=== PATIENT | male | born 2000 | race Caucasian/White ===

== ENCOUNTER 2023-04-24 18:56 | Emergency (ER) | payer SELFPAY ==
[~2023-04-24] VITALS: Ht 172.7 cm; Wt 75.7 kg
--- NOTE | 2023-04-24 19:10 | NUR ---
PT AMB TO 4B.
[2023-04-24] MEDS ORDERED: IBUPROFEN 600 MG TABLET PO ONE (19:30)
[2023-04-24] MEDS ORDERED: TDAP DIPH,PERTUSS,TET VAC/PF 0.5 ML DISP.SYRIN IM ONE ×2 (19:30→19:39)
--- NOTE | 2023-04-24 19:30 | NUR ---
L FA X RAYED AT BEDSIDE.
[2023-04-24] MEDS ORDERED: IBUPROFEN 600 MG TABLET ONE (19:38)
[2023-04-24] MEDS ORDERED: LIDOCAINE 2%-EPI 1:100,000 20 ML VIAL ONE ×2 (19:57→20:04)
--- NOTE | 2023-04-24 20:04 | NUR ---
AT BEDSIDE SUTTURING LAC.
[2023-04-24] MEDS ORDERED: CEPH500T PO (20:40)
--- NOTE | 2023-04-24 21:45 | NUR ---
PT'S LACERATION WAS DRESSED AND A SLING WAS APPLIED. PT PATIENCE WELL WITH NO C/O PAIN AND NAD OBSERVED.
--- NOTE | 2023-04-24 22:34 | NUR ---
PT A,A AND O X 4 WITH NO PAIN AND NAD OBSERVED.Patient discharged to home in stable condition. Written and verbal after care instructions given. Patient verbalizes understanding of instructions. Stressed follow up or return to ER for worsening s/s. PT AMB OUT WITH STEADY GAIT.
[2023-04-24 22:44] VITALS: BP 134/86
== END 2023-04-24 22:34 | disposition home or self-care (01) ==
LOC: ER 19:02
DX: S51.812A Laceration without foreign body of left forearm, initial encounter (principal); Z79.899 Other long term (current) drug therapy; W25.XXXA Contact with sharp glass, initial encounter; Y93.89 Activity, other specified; Y92.89 Other specified places as the place of occurrence of the external cause; Y99.8 Other external cause status
CPT/HCPCS: 73090; 90715; A4663

== ENCOUNTER 2023-05-01 11:35 | Emergency (ER) | payer SELFPAY ==
[~2023-05-01] VITALS: Ht 172.7 cm; Wt 75.7 kg
[~2023-05-01 11:35] MED LIST: CEPH500T PO
[2023-05-01 11:41] VITALS: O2SAT 99
--- NOTE | 2023-05-01 11:56 | NUR ---
PT SEEN AND EVALUATED BY DR MENESES. SUTURES REMOVED BY . TOLERATED WELL BY PT.
== END 2023-05-01 12:10 | disposition home or self-care (01) ==
LOC: ER 11:35
DX: S51.812D Laceration without foreign body of left forearm, subsequent encounter (principal); Z79.899 Other long term (current) drug therapy; W25.XXXD Contact with sharp glass, subsequent encounter
CPT/HCPCS: A4663